=== PATIENT | male | born 1990 | race Two or more races ===

== ENCOUNTER 2019-04-18 15:09 | Emergency (ER) | payer MEDICAID ==
[~2019-04-18] VITALS: Ht 172.7 cm; Wt 113.4 kg
--- NOTE | 2019-04-18 15:35 | NUR ---
ED Nurse Note: Pt walked in from home due to lower back pain 12/22. Pt denied trauma. Pt aaox4, ambulatory, no acute distress noted. Skin clean and intact. Pt calm and cooperative. Pt in gown and quality assurance monitor body.
[2019-04-18 15:37] VITALS: BP 142/77
[2019-04-18] MEDS ORDERED: Methocarbamol 750mg tab ORAL ONE (15:45)
--- NOTE | 2019-04-18 15:45 | NUR ---
ED Nurse Note: Pt went down for x-ray in stable condition.
--- NOTE | 2019-04-18 16:00 | NUR ---
ED Nurse Note: pt came back from x-ray in stable condition.
--- NOTE | 2019-04-18 16:09 | Diagnostic Imaging Report ---
Indication: Back pain Comparison: None Findings: 3 views of the lumbar spine were obtained. Multilevel narrowing of intervertebral disks and associated endplate and facet osteophytes are present. No malalignment identified. No acute fracture definitely seen. Impression: Mild spondylosis. No acute injury appreciated.
[2019-04-18] MEDS ORDERED: IBUPROFEN600 MG ORAL (16:16)
[2019-04-18] MEDS ORDERED: LIDODERM700 M1 TOPIC (16:16)
[2019-04-18] MEDS ORDERED: ROBAXIN-750750 MG PO (16:16)
[2019-04-18 16:22] VITALS: BP 130/67
--- NOTE | 2019-04-18 16:24 | NUR ---
ED Nurse Note: Pt cleared by health care Provider for discharge. pt verbalized imrpoved pain level to 2/10. DC instructions/prescription was given and explained to pt and verbalized understanding of teachings. All medical deviecs such as ID band removed. Pt is AAO x4, ambulatory and left with all personal belongings.
--- NOTE | 2019-04-18 16:59 | Emergency Room Report ---
History of Present Illness General Chief Complaint: Lower Back Pain or Injury Source: Patient Present Illness HPI 29-year-old male presents ED for evaluation. Complaining of lower back pain. Started today. Pain is dull, 7 out of 10, nonradiating. Worse with twisting and bending. Denies any bowel or bladder incontinence. Denies any leg or motor weakness. No other aggravating relieving factors. Denies any other associated symptoms Allergies: Coded Allergies: No Known Allergies (Unverified , 04/18/19) Patient History Past Medical History: none Past Surgical History: none Pertinent Family History: none Social History: Denies: smoking, alcohol use, drug use Immunizations: UTD Reviewed Nursing Documentation: PMH: Agreed; PSxH: Agreed Nursing Documentation-PMH Past Medical History: No Stated History Review of Systems All Other Systems: negative except mentioned in HPI Physical Exam Vital Signs Date Time Temp Pulse Resp B/P (MAP) Pulse Ox O2 Delivery O2 Flow Rate FiO2 04/18/19 15:23 98.2 84 18 136/79 (98) 96 Room Air Sp02 EP Interpretation: reviewed, normal General Appearance: no apparent distress, alert, GCS 15, non-toxic Head: normocephalic Eyes: bilateral eye normal inspection, bilateral eye PERRL ENT: normal ENT inspection Neck: normal inspection Respiratory: normal inspection Cardiovascular #1: normal inspection Gastrointestinal: normal inspection Rectal: deferred Genitourinary: no CVA tenderness, vertebral tenderness Musculoskeletal: tender - paraspinal lumbartebderbess Neurologic: alert, oriented x3, responsive, motor strength/tone normal, sensory intact, speech normal Psychiatric: normal inspection Skin: no rash Lymphatic: normal inspection Medical Decision Making Diagnostic Impression: Primary Impression: Low back pain Qualified Codes: M54.5 - Low back pain ER Course Hospital Course 29 yo M presents to ED c/o lower back pain. Differential diagnoses include: Fracture, dislocation, sprain, contusion Clinical course Patient placed on stretcher. After initial history and physical, I ordered pain medications and Xrays of L spine Xrays read shows no acute fracture/dislocation. On reassessment pain is improved. Discussed findings with patient. Will discharge to home with prescriptions. Does not have a PMD. Will provide referrals Diagnosis - low back pain Stable and discharged to home with prescription for Motrin, robaxin, lidoderm. weight bear as tolerated. Followup with PMD. Return to ED if symptoms recur or worsen Other X-Ray Diagnostic Results Other X-Ray Diagnostic Results : X-Ray ordered: L spine # of Views/Limited Vs Complete: 3 View Indication: Pain EP Interpretation: Yes Interpretation: no dislocation, no soft tissue swelling, no fractures Impression: No acute disease Electronically Signed by: Electronically signed by Giuliano Henson MD Last Vital Signs Date Time Temp Pulse Resp B/P (MAP) Pulse Ox O2 Delivery O2 Flow Rate FiO2 04/18/19 16:22 98.5 88 14 130/67 98 Room Air Status: improved Disposition: HOME, SELF-CARE Condition: Stable Scripts Lidocaine Patch* (Lidoderm Patch*) 1 Each Adh..patch 1 PATCH TOPIC DAILY, #7 PATCH 0 Refills Patch(es) may remain in place for up to 12 hours in any 24-hour period. Prov: Giuliano Henson MD 04/18/19 Methocarbamol* (ROBAXIN-750*) 750 Mg Tablet 750 MG PO TID, #21 TAB 0 Refills Prov: Giuliano Henson MD 04/18/19 Ibuprofen* (MOTRIN*) 600 Mg Tablet 600 MG ORAL Q8H PRN for For Pain, #30 TAB 0 Refills Prov: Giuliano Henson MD 04/18/19 Referrals: [facility] Departure Forms: Return to Work Return to Work Date: Apr 20, 2019 Work Restrictions: No Heavy Lifting Patient Instructions: Low Back Sprain With [facility] Giuliano Henson MD Apr 18, 2019 16:59
== END 2019-04-18 16:25 | disposition home or self-care (01) ==
LOC: EMR 16:22
DX: M54.5 Low back pain (principal)
CPT/HCPCS: 72020; Z7502; 99283